=== PATIENT | male | born 1950 | race Hispanic/Latino ===

== ENCOUNTER → 2023-10-11 | Outpatient (CLI) | payer OTHER | END | disposition home or self-care (01) | LOC: RAH 14:52 | PROVIDERS: ATTEND Internal Medicine | DX: G62.9 Polyneuropathy, unspecified (principal) | CPT/HCPCS: 93925 ==

== ENCOUNTER 2024-01-14 06:06 | Day surgery (SDC) | payer OTHER ==
[2024-01-14] VITALS (11 sets, daily range): BP systolic 106–155; BP diastolic 58–79; PULSE 62–76; RESP 15–18
[~2024-01-14] VITALS: Ht 177.8 cm; Wt 85.7 kg
[2024-01-14] MEDS ORDERED: ATOR10 PO (06:41)
[2024-01-14] MEDS ORDERED: GLIP1TAB5 PO (06:41)
[2024-01-14] MEDS ORDERED: ASPI-1005 PO (06:41)
[2024-01-14] MEDS: 0.9%NACL 1000ML 1,000 ML IV ONE (06:49)
[2024-01-14] MEDS ORDERED: PROPOFOL 10 MG/ML 20ML VIAL IV ONE (07:33)
== END 2024-01-14 09:00 | disposition home or self-care (01) ==
LOC: ENDO 06:06 → DAH 06:06 → ENDO 09:00
PROVIDERS: ATTEND Internal Medicine Gastroenterology
DX: R13.10 Dysphagia, unspecified (principal); K31.7 Polyp of stomach and duodenum; K29.50 Unspecified chronic gastritis without bleeding; E11.621 Type 2 diabetes mellitus with foot ulcer; K59.00 Constipation, unspecified; E78.5 Hyperlipidemia, unspecified; M19.90 Unspecified osteoarthritis, unspecified site; Z79.82 Long term (current) use of aspirin; Z79.84 Long term (current) use of oral hypoglycemic drugs; Z79.899 Other long term (current) drug therapy; Z83.3 Family history of diabetes mellitus; Z82.49 Family history of ischemic heart disease and other diseases of the circulatory system
CPT/HCPCS: 43251; 82948 ×2; 43239; 43249; J7030; J2704; C1726; A4620; A4215 ×2; A4223; A4222; A4221; A4663; A4606; J3490

== ENCOUNTER 2024-07-06 00:33 | Emergency (ER) | payer OTHER ==
[~2024-07-06] VITALS: Ht 154.9 cm; Wt 77.6 kg
[~2024-07-06 00:33] MED LIST: ASPI-1005 PO; ATOR10 PO; GLIP1TAB5 PO
--- NOTE | 2024-07-06 00:56 | ERN ---
ED Note History of Present Illness Stated Complaint: NAUSEA, VOMITING, HYPERGLYCEMIA Chief Complaint: Hyperglycemia Time Seen by MD: 00:54 Dictation: Comes in. Because he has elevated sugar. He has not been taking his diabetic medications his metformin was last couple weeks. No falls trips traumas. No chest pain or shortness of breath no abdominal pain Allergies: Coded Allergies: No Known Drug Allergies (Unverified Allergy, Unknown, 07/06/24) Home Meds Reported Medications Glipizide/Metformin HCl (Glipizide-Metformin 2.5-500 mg) 2.5 Mg-500 Mg Tablet, 1 EACH PO TID, TAB 01/14/24 Atorvastatin Calcium (LIPITOR) 10 Mg Tab, 10 MG PO AM, TAB 01/14/24 Aspirin (ASPIRIN 81MG CHEW TAB) 81 Mg Tab.chew, 81 MG PO DAILY, TAB.CHEW 01/14/24 Review of System Dictation Constitutional: Negative for fever,chills, and weight loss Eyes: Negative for injury, pain,redness, and discharge ENT: Negative for injury,pain or swelling Cardiovascular: Negative for chest pain, palpitations, and edema Respiratory: Negative for shortness of breath, cough, and wheezing, Abdomen/GI: Nausea Back: Negative for injury and pain : Negative for injury, bleeding and discharge MS/Extremity: Negative for injury and deformity Skin: Negative for rash, and discoloration Neuro: Negative for headache, weakness, numbness, tingling, and seizure Psych: Negative for suicide ideation, homicidal ideation, and hallucinations Initial Vital Sign VS Vital Signs Date Time Temp Pulse Resp B/P (MAP) Pulse Ox O2 Delivery O2 Flow Rate FiO2 07/06/24 00:34 97.3 88 17 208/108 97 Room Air* 0 21 Physical Exam Dictation General: awake, alert, NAD Head/Face: Normocephalic, atraumatic Eyes: PERRL, EOMI, vision at baseline ENT: oral cavity clear, TMs clear, no signs of infection Neck: Trachea midline, supple, no nuchal rigidity Cardiovascular: RRR, normal S1/S2, No MRGs, no JVD Respiratory: CTAB, no respiratory distress, No rales or wheezes Abdomen: Soft, non-tender, non-distended, normal bowel sounds, no guarding or rebound. Skin: Warm, dry, normal turgor, no rash MS/Extremity: Pulses equal, no cyanosis, neurovascular intact, FROM Neuro: COAx4, GCS 15, strength 5/5, CN 2-12 intact, normal cerebellar exam, normal gait, Psych: Normal behavior, mood, and affect normal Results (Laboratory/Radiology) Laboratory/Radiology Laboratory Tests Test 07/06/24 01:13 07/06/24 01:30 07/06/24 02:10 Whole Blood Glucose 375 MG/DL (70-110) H White Blood Count 7.5 K/uL (4.8-10.8) Red Blood Count 4.95 MIL/uL (4.50-6.20) Hemoglobin 15.4 g/dL (14.0-18.0) Hematocrit 43.4 % (42-54) Mean Corpuscular Volume 87.7 fL (79-99) Mean Corpuscular Hemoglobin 31.1 pg (27.0-33.0) Mean Corpuscular Hemoglobin Concent 35.5 g/dL (32.0-36.0) Red Cell Distribution Width 12.3 % (11.0-15.5) Platelet Count 168 K/uL (130-400) Mean Platelet Volume 10.8 fL (7.5-10.5) H Immature Granulocyte % (Auto) 0.7 % (0-1) Neutrophils (%) (Auto) 79.1 % (40.0-77.0) H Lymphocytes (%) (Auto) 12.9 % (21.0-51.0) L Monocytes (%) (Auto) 5.6 % (3.0-13.0) Eosinophils (%) (Auto) 1.2 % (0.0-8.0) Basophils (%) (Auto) 0.5 % (0.0-5.0) Neutrophils # (Auto) 6.0 K/uL (1.8-7.7) Lymphocytes # (Auto) 1.0 K/uL (1.0-4.8) Monocytes # (Auto) 0.4 K/uL (0.1-1.0) Eosinophils # (Auto) 0.09 K/uL (0.00-0.70) Basophils # (Auto) 0.04 K/uL (0.00-0.20) Absolute Immature Granulocyte (auto 0.05 K/uL (0-1) Nucleated Red Blood Cells 0.0 % (0.0-0.19) Sodium Level 137 mmol/L (136-145) Potassium Level 4.0 mmol/L (3.5-5.1) Chloride Level 98 mmol/L (101-111) L Carbon Dioxide Level 28 mmol/L (21-32) Blood Urea Nitrogen 24 mg/dL (7-18) H Creatinine 1.0 mg/dL (0.5-1.3) Glomerular Filtration Rate Calc 80 mL/min (>90) Random Glucose 376 mg/dL (70-105) H Total Calcium 9.2 mg/dL (8.5-10.1) Total Creatine Kinase 81 U/L (21-232) Troponin I High Sensitivity 5.2 ng/L (4-75) Troponin I < 0.05 ng/mL (0.00-0.05) ED Course ED Course Orders Procedure Category Date Status Time Cardiac Panel LAB 07/06/24 Complete 00:46 Cbc With Differential LAB 07/06/24 Complete 00:46 Basic Metabolic Panel LAB 07/06/24 Complete 00:46 Chest 1vw RAD 07/06/24 Taken 00:46 12 Lead Ekg Tracing- EKG 07/06/24 Logged Technical 00:46 Lactated Ringers PHA 07/06/24 Complete 1000ml (Lactated 01:00 Troponin Poc Order LAB 07/06/24 Complete Only 00:46 Bedside Troponin-I LAB.ER 07/06/24 In Process (Poc) 00:46 Ondansetron 4mg Inj PHA 07/06/24 In Process (Zofran 4mg Inj) 02:30 Ondansetron 4mg Inj PHA 07/06/24 Complete (Zofran 4mg Inj) 02:12 Current Medications Medications (Trade) Dose Ordered Sig/Kyaw Route PRN Reason Start Time Stop Time Status Last Admin Dose Admin Lactated Ringer's 1,000 ml @ 0 mls/hr ONCE ONCE IV 07/06/24 01:00 07/06/24 01:01 DC 07/06/24 01:35 Ondansetron HCl (zoFRAN 4MG INJ) 4 mg ONCE ONCE IVP 07/06/24 02:30 07/06/24 02:31 07/06/24 02:15 Ondansetron HCl (zoFRAN 4MG INJ) 4 mg STK-MED ONCE .ROUTE 07/06/24 02:12 07/06/24 02:13 DC Vital Signs Date Time Temp Pulse Resp B/P (MAP) Pulse Ox O2 Delivery O2 Flow Rate FiO2 07/06/24 00:55 97.3 88 17 208/108 97 Room Air 0 07/06/24 00:34 97.3 88 17 208/108 97 Room Air* 0 21 Medical Decision Making MDM Likely issues with his diabetes. Doing labs to make sure he is not DKA. His have any chest pain ACS symptoms. No focal deficits he is able to speak full complete sentences no dysarthria. No acute distress nontoxic appearing NIH of 0 DX & DISP Disposition: Discharge Departure Impression: Primary Impression: Hyperglycemia Condition: Stable Referrals: MAGALIE MARI MD (PCP) JERI REHMAN MD Jul 06, 2024 00:56
[2024-07-06] MEDS: LACTATED RINGERS 1000ML 1,000 ML IV ONE (01:35)
[2024-07-06 01:54] LABS: BASOPHILS # (AUTO) 0.04 K/uL (0.00-0.20); BASOPHILS % (AUTO) 0.5 % (0.0-5.0); EOSINOPHILS # (AUTO) 0.09 K/uL (0.00-0.70); EOSINOPHILS % (AUTO) 1.2 % (0.0-8.0); HEMATOCRIT 43.4 % (42-54); IMMATURE GRANULOCYTE ABSOLUTE 0.05 K/uL (0-1); LYMPHOCYTES % (AUTO) 12.9 % (21.0-51.0); MEAN CORPUSCULAR HEMOGLOBIN 31.1 pg (27.0-33.0); MEAN CORPUSCULAR HGB CONC 35.5 g/dL (32.0-36.0); MEAN CORPUSCULAR VOLUME 87.7 fL (79-99); MONOCYTES # (AUTO) 0.4 K/uL (0.1-1.0); MONOCYTES % (AUTO) 5.6 % (3.0-13.0); NEUTROPHILS % (AUTO) 79.1 % (40.0-77.0); PLATELET COUNT (AUTO) 168 K/uL (130-400); RED BLOOD CELL COUNT(AUTO) 4.95 MIL/uL (4.50-6.20); RED CELL DISTRIBUTION WIDTH 12.3 % (11.0-15.5); WHITE BLOOD COUNT (AUTO) 7.5 K/uL (4.8-10.8)
--- NOTE | 2024-07-06 01:54 | NUR ---
assumed pt care at this time
[2024-07-06] MEDS: ondanSETRON 4MG INJ IVP ONE (02:15)
[2024-07-06] MEDS: ondanSETRON 4MG INJ ONE (02:16)
[2024-07-06] MEDS: INSULIN humuLIN R 100 UNIT/ML 3ML SQ ONE (02:34)
--- NOTE | 2024-07-06 03:31 | NUR ---
pt c/o dizziness, ed md made aware, no new orders received at this time
[2024-07-06] MEDS: mecliZINE HCL 25 MG TABLET PO ONE (03:45)
--- NOTE | 2024-07-06 05:21 | EKG ---
[facility] Test Date: 2024-07-06 Test Time: 00:49:27 Pat Name: BLAIR CARDOSO Department: [facility] Room: Gender: M Cuff Turner: [id number] : 1950 Requested By: JERI REHMAN Order Number: [id number] Reading MD: Anali Nolasco Measurements Intervals [place] Rate: 88 P: 29 NE: 175 QRS: -39 QRSD: 141 T: 20 QT: 406 QTc: 492 Interpretive Statements Sinus rhythm Right bundle branch block No previous ECG available for comparison Electronically Signed On 07-06-2024 18:09:26 [employer] by Anali Nolasco Please click the below link to view image of tracing.
--- NOTE | 2024-07-06 05:50 | NUR ---
PATIENT REPORTS "FEELING BETTER"
[2024-07-06 05:52] VITALS: BP 156/72; PULSE 80; RESP 18; TEMP 97.8; O2SAT 98
--- NOTE | 2024-07-06 08:39 | HMCIMG ---
Exam Type: CHEST 1VW Clinical Information: cp Comparison: None Findings: The lungs are clear of infiltrates. The heart is normal in size. The bony and soft tissue structures of the chest are unremarkable. Impression: Clear lungs.
== END 2024-07-06 05:54 | disposition home or self-care (01) ==
LOC: EDH 00:33
DX: R73.9 Hyperglycemia, unspecified (principal); Z79.82 Long term (current) use of aspirin; Z79.84 Long term (current) use of oral hypoglycemic drugs
CPT/HCPCS: 99285; 96374; 71045; 96361; 82550; 84484 ×2; 80048; 85025; 82948 ×3; 36415; 93005; 96372; J1815; J7120; J2405

== ENCOUNTER → 2024-09-14 | Outpatient (CLI) | payer OTHER ==
--- NOTE | 2024-09-14 17:16 | HMCIMG ---
LUMBAR SPINE 2-3VWS HISTORY: Back pain COMPARISON: None FINDINGS: 3 images of lumbar spine were obtained. Endplate degenerative changes are seen with disc space narrowing at L4-5 level. There are degenerative changes with lumbar spine spondylosis. There is straightening of normal lordotic curvature which may be related to muscle spasm or positioning. No loss of vertebral height is seen. No fracture or dislocation is seen. Degenerative changes are seen. IMPRESSION: 1. No fracture is seen. DJD.
== END | disposition home or self-care (01) ==
LOC: RAH 14:51
PROVIDERS: ATTEND Internal Medicine
DX: M47.816 Spondylosis without myelopathy or radiculopathy, lumbar region (principal); M48.061 Spinal stenosis, lumbar region without neurogenic claudication; M54.50 Low back pain, unspecified
CPT/HCPCS: 72100